=== PATIENT | female | born 1980 | race Two or more races ===

== ENCOUNTER 2020-07-20 15:18 | Emergency (ER) | payer MEDICAID, SELFPAY ==
[~2020-07-20] VITALS: Ht 162.6 cm; Wt 116.1 kg
--- NOTE | 2020-07-20 15:40 | NUR ---
EMBOSSER APPRENTICE: PT TO ROOM FROM LOBBY
--- NOTE | 2020-07-20 15:54 | NUR ---
MENSES STARTED YESTERDAY. TODAY: HEAVY FLOW - CHANGING PADS Q 30 MINS. WAS IN SHOWER, FELT LIGHTHEADED/DIZZY, EXPERIENCED BACK PAIN. DENIES RECENT COUGH, FEVER. NO KNOWN COVID CONTACT. CURRENTLY: " A LITTLE LIGHTHEADED", MUSCLE TIGHTNESS IN SHOULDERS. DENIES NAUSEA.
[2020-07-20 16:20] LABS: BASOPHILS % (AUTO) 1 % (0-1); EOSINOPHILS % (AUTO) 2 % (1-7); LYMPHOCYTES % (AUTO) 34 % (22-44); MEAN CORPUSCULAR HEMOGLOBIN 21.7 pg (27.0-34.8); MEAN CORPUSCULAR HGB CONC 31.3 g/dL (32.4-35.8); MEAN PLATELET VOLUME 7.4 fL (7.4-10.4); MONOCYTES % (AUTO) 10 % (2-9); NEUTROPHILS % (AUTO) 54 % (42-75); PLATELET COUNT 304 x10^3/uL (130-400); RED BLOOD COUNT 4.93 x10^6/uL (3.82-5.3); RED CELL DISTRIBUTION WIDTH 19.9 % (9.6-15.2)
[2020-07-20 16:22] LABS: MD NO
[2020-07-20 16:22] LABS: ALBUMIN 3.5 g/dL (3.4-5.0); ANION GAP 6 mmol/L (5-15); CHLORIDE 110 mmol/L (98-107)
[2020-07-20 16:27] LABS: MICROSCOPIC INDICATED
[2020-07-20 16:28] LABS: ALANINE AMINOTRANSFERASE 97 U/L (12-78); ALKALINE PHOSPHATASE 63 U/L (45-117); BILIRUBIN,TOTAL 0.6 mg/dL (0.2-1.0); CREATININE 0.65 mg/dL (0.55-1.02); TOTAL PROTEIN 7.2 g/dL (6.4-8.2)
--- NOTE | 2020-07-20 16:41 | NUR ---
PT RESTING QUIETLY ON GURNEY, AWAITING U/S.
--- NOTE | 2020-07-20 17:26 | NUR ---
PT ENDORSED TO BREAK RN; NOTIFIED OF QUICK CATH ORDER.
--- NOTE | 2020-07-20 17:45 | NUR ---
STRAIGHT CATH PERFORMED TO OBTAIN STERILE UA
[2020-07-20 17:58] LABS: MICROSCOPIC INDICATED
--- NOTE | 2020-07-20 18:09 | NUR ---
COURT CRIER BED AND CART TO ROOM
--- NOTE | 2020-07-20 18:31 | NUR ---
METROLOGIST EXAM PER JAYESH CABRERA W/ THIS RN ASSIST. MENSTRUAL PAD PROVIDED TO PT.
[2020-07-20 19:04] VITALS: BP 142/96
== END 2020-07-20 19:43 | disposition home or self-care (01) ==
LOC: ED 17:49
DX: D62 Acute posthemorrhagic anemia (principal); D25.9 Leiomyoma of uterus, unspecified; N93.8 Other specified abnormal uterine and vaginal bleeding; R06.02 Shortness of breath; R42 Dizziness and giddiness; M79.10 Myalgia, unspecified site; R10.2 Pelvic and perineal pain
CPT/HCPCS: 36415; 76830; 80053; 81001; 83690; 84703; 85025; 87086; 99284